=== PATIENT | male | born 2000 | race Hispanic/Latino ===

== ENCOUNTER 2024-07-16 14:13 | Emergency (ER) | payer SELFPAY ==
[~2024-07-16] VITALS: Ht 167.6 cm; Wt 59.0 kg
[2024-07-16 14:24] VITALS: TEMP 98.6
[2024-07-16 14:35] VITALS: BP 142/90; PULSE 74; RESP 16; O2SAT 97
[2024-07-16] MEDS: MAG/ALUM/SIMETH 30 ML UDCUP PO ONE (15:10)
[2024-07-16] MEDS: LIDOCAINE HCL 2% VISCOUS 15 ML UDCUP PO ONE (15:11)
[2024-07-16] MEDS: acetaMINOPHEN 325 MG TAB PO ONE (15:11)
[2024-07-16] MEDS ORDERED: PANT40TA55 PO (15:24)
[2024-07-16] MEDS ORDERED: ONDA-243 PO (15:24)
--- NOTE | 2024-07-16 15:26 | ERN ---
General Chief Complaint: Headache Stated Complaint: CANT BREATH, HEADACHE Time Seen by MD: 14:14 Source: patient History of Present Illness Initial Comments Patient is a 22-year-old male coming in to be evaluated for headache. Patient states that he was drinking last night came in for further evaluation. Patient also states he felt mild nauseousness. Allergies: Coded Allergies: No Known Drug Allergies (Unverified Allergy, Unknown, 07/16/24) Past Medical History Past Medical History: No Pertinent History Past Surgical History: None ROS Dictation CONSTITUTIONAL: No chills, no fever, no weakness, no diaphoresis, no malaise. HEAD/FACE: No signs of trauma. EENT: No eye pain, no blurred vision, no tearing, no double vision, no ear pain, no ear discharge, no nose pain, no nasal congestion, no throat pain, no throat swelling, no mouth pain. RESPIRATORY: No cough, no orthopnea, no SOB, no stridor, no wheezing. CARDIOVASCULAR: No chest pain, no edema, no palpitations, no syncope. GASTROINTESTINAL/ABDOMINAL: No abdominal pain, no constipation, no diarrhea, no nausea, no vomiting. GENITOURINARY: No abnormal discharge, no dysuria, no frequent urination, no hematuria. No complaints of pain in the genitals. MUSCULOSKELETAL: No back pain, no gout, no joint pain, no joint swelling, no muscle pain, no muscle stiffness, no neck pain. INTEGUMENTARY: No change in color, no change in hair/nails, no dryness, no lesion, no lumps, no rash. NEUROLOGICAL/PSYCH: No anxiety, not depressed, no emotional problem, no headache, no numbness, no pre-existing deficit, no history of seizures, no tremors, no weakness. HEMATOLOGIC/LYMPHATIC: Not anemic, no history of blood clots, no apparent bleeding, no bruising, glands not swollen. All Systems Negative, Except as Noted. Physical Exam Physical Exam Dictation VITAL SIGNS: Reviewed. GENERAL APPEARANCE: Alert, oriented x3, no acute distress, obese. HEAD AND FACE: Non-traumatic. EYES: PERRL, pink conjunctivas, eyelid no trauma, anterior chamber clear. EARS: Pinnas intact and no signs of trauma or erythema. Ear canals clear and no discharge. TMs no erythema. NOSE: No discharge, no bleeding. OROPHARYNX: Mouth normal, teeth no caries, tongue pink. Pharynx clear, no erythema. Tonsils no exudates, no abscesses noted. Mucous membrane moist. NECK: Supple, non-tender, no thyromegaly, no masses, no JVD, no bruits. BREAST: Deferred. CHEST: No tenderness, no crepitus, no paradoxical movement, no retractions. LUNGS: Clear, well-ventilated, symmetric, no rales, no wheezing, no rhonchi, no stridor, good breath sounds bilaterally. HEART: Regular rate, regular rhythm, no murmur, no gallops. VASCULAR: No peripheral edema. ABDOMEN: Soft, positive bowel sounds, nondistended, no guarding, nontender, no rebound, no masses no hepatomegaly, no splenomegaly, no Dos Santos's sign, no hernias. RECTAL: Deferred. GENITAL: Deferred. NEUROLOGICAL: Normal speech, gross motor function intact, gross sensory function intact. MUSCULOSKELETAL: Neck nontender, full range of motion, back nontender, full range of motion. EXTREMITIES: Nontender, full range of motion. SKIN: Color pink, dry, no turgor, no rash, no lacerations, no abrasions, no contusions. LYMPHATICS: Deferred. Results Laboratory and Microbiology Labs Reviewed?: Yes MDM MDM: Differential diagnosis: Hangover, on-call abuse, dehydration, anxiety Patient is a 23-year-old male coming in to be evaluated for headache after drinking last night. Vital signs within normal limits. I advised him to abstain from alcohol drinking to rest and drink fluids. Patient will be discharged in stable condition. ED Course Orders Procedure Category Date Status Time Acetaminophen 325 Tab PHA 07/16/24 Complete (Tylenol 325mg Tab 15:00 Lidocaine Hcl 2% PHA 07/16/24 Complete Viscous (Lidocaine Hcl 15:00 Mag/Alum/Simeth 30ml PHA 07/16/24 Complete (Maalox Plus 30ml) 15:00 Current Medications Medications (Trade) Dose Ordered Sig/Josue Route PRN Reason Start Time Stop Time Status Last Admin Dose Admin Acetaminophen (TYLenol 325MG TAB) 650 mg ONCE ONCE PO 07/16/24 15:00 07/16/24 15:01 DC 07/16/24 15:11 Al Hydroxide/Mg Hydroxide (MAALox PLUS 30ML) 30 ml ONCE ONCE PO 07/16/24 15:00 07/16/24 15:01 DC 07/16/24 15:10 Lidocaine HCl (Lidocaine HCl 2% Viscous) 10 ml ONCE ONCE PO 07/16/24 15:00 07/16/24 15:01 DC 07/16/24 15:11 Vital Signs Date Time Temp Pulse Resp B/P (MAP) Pulse Ox O2 Delivery O2 Flow Rate FiO2 07/16/24 14:35 74 16 142/90 97 Room Air* 0 21 07/16/24 14:24 98.6 70 18 166/95 98 DX & DISP Disposition: Discharge Departure Impression: Primary Impression: Hangover effect Condition: Stable Scripts Ondansetron (Ondansetron Odt) 4 Mg Tab.rapdis 4 MG PO BID for 3 Days, #6 TAB Prov: PHIL VALERO MD 07/16/24 Pantoprazole Sodium (Protonix) 40 Mg Ectab 1 TAB PO DAILY for 30 Days, #30 TAB 0 Refills Prov: PHIL VALERO MD 07/16/24 Additional Instructions: FOLLOW-UP WITH PRIMARY CARE PROVIDER IN 1 TO 2 DAYS. TAKE MEDICATIONS DIRECTED HERE IN THE EMERGENCY ROOM. OKAY TO CONTINUE HOME MEDICATIONS UNLESS OTHERWISE DISCUSSED DURING YOUR VISIT IN THE EMERGENCY ROOM TODAY. RETURN TO Y OUR NEAREST EMERGENCY ROOM IF SYMPTOMS WORSEN OR IF THERE IS NO IMPROVEMENT. CALL 911 IF YOU NEED IMMEDIATE ASSISTANCE. TAKE TYLENOL [id number] NEEDED AND IF NO CONTRAINDICATIONS ARE PRESENT. INCREASE ORAL HYDRATION. A WOUND CULTURE OR URINE CULTURE WAS ORDERED HERE IN THE EMERGENCY ROOM DEPARTMENT PLEASE FOLLOW-UP WITH PRIMARY CARE PROVIDER AND ADVISE THEM TO GET REPEAT PORTS FROM OUR FACILITY. IF YOU HAD ANY ANGELA WRAP/SPLINTS THAT WERE APPLIED HERE, PLEASE DO NOT REMOVE THEM UNTIL YOU SEE YOUR PRIMARY CARE OR SPECIALTY. Referrals: Referrals: NONE (PCP) KIMBERLY NERI MD Time of Disposition: 15:23 PHIL VALERO MD Jul 16, 2024 15:26
== END 2024-07-16 15:33 | disposition home or self-care (01) ==
LOC: EDH 14:13
DX: F10.129 Alcohol abuse with intoxication, unspecified (principal); Y90.9 Presence of alcohol in blood, level not specified
CPT/HCPCS: 99284